=== PATIENT | female | born 1985 | race Caucasian/White ===

== ENCOUNTER 2017-06-15 18:50 | Outpatient (CLI) | payer BC ==
[~2017-06-15] VITALS: Ht 154.9 cm; Wt 84.8 kg
[~2017-06-15 18:50] MED LIST: IBUPROFEN800 MG PO; NORCO 5/3251 TABLET PO
[2017-06-15 19:13] VITALS: BP 123/69
[2017-06-15 19:36] VITALS: BP 126/81
[2017-06-15 20:13] LABS: APPEARANCE CLEAR ((CLEAR)); BILIRUBIN NEGATIVE; BLOOD NEGATIVE; COLOR STRAW ((YELLOW)); GLUCOSE (STRIP) 50; KETONES 5; LEUKOCYTES NEGATIVE; NITRITE NEGATIVE; PROTEIN (STRIP) NEGATIVE; SPECIFIC GRAVITY 1.004 (1.000-1.030); UROBILINOGEN 0.2 MG/DL (0.2-1.0)
[2017-06-15 20:39] LABS: AMPHETAMINE NEGATIVE (500 ng/mL); BARBITURATES NEGATIVE (200 ng/mL); BENZODIAZEPINES NEGATIVE (150 ng/mL); BUPRENORPHINE NEGATIVE (10 ng/mL); COCAINE NEGATIVE (150 ng/mL); METHADONE NEGATIVE (200 ng/mL); METHAMPHETAMINE NEGATIVE (500 ng/mL); OPIATES (MORPHINE) NEGATIVE (100 ng/mL); OXYCODONE NEGATIVE (100 ng/mL); PHENCYCLIDINE NEGATIVE (25 ng/mL); PROPOXYPHENE NEGATIVE (300 ng/mL); THC CANNABINOIDS NEGATIVE (50 ng/mL); TRICYCLIC ANTIDEPRESSANTS NEGATIVE (300 ng/mL)
[2017-06-15] MEDS ORDERED: ZANTAC150 MG PO (21:33)
[2017-06-15] MEDS ORDERED: ZOFRAN8 MG PO (21:33)
== END 2017-06-15 21:40 | disposition home or self-care (01) ==
LOC: LDRP-OP 18:50 → 2WEST 18:51 → LDRP-OP 09-06 08:09
PROVIDERS: Advanced Practice Midwife
DX: O26.893 Other specified pregnancy related conditions, third trimester (principal); R10.9 Unspecified abdominal pain; M41.9 Scoliosis, unspecified; M54.9 Dorsalgia, unspecified; R11.2 Nausea with vomiting, unspecified; O99.333 Smoking (tobacco) complicating pregnancy, third trimester; F17.200 Nicotine dependence, unspecified, uncomplicated; F32.9 Major depressive disorder, single episode, unspecified; O99.343 Other mental disorders complicating pregnancy, third trimester; F41.9 Anxiety disorder, unspecified; R45.850 Homicidal ideations; Z87.442 Personal history of urinary calculi; Z87.440 Personal history of urinary (tract) infections; Z79.891 Long term (current) use of opiate analgesic; Z88.0 Allergy status to penicillin; Z82.0 Family history of epilepsy and other diseases of the nervous system; Z82.49 Family history of ischemic heart disease and other diseases of the circulatory system; Z3A.32 32 weeks gestation of pregnancy
CPT/HCPCS: 59025; 81003; 87480; 87510; 87660; G0378

== ENCOUNTER 2017-07-14 16:13 | Outpatient (CLI) | payer BC ==
[~2017-07-14] VITALS: Ht 154.9 cm; Wt 85.9 kg
[~2017-07-14 16:13] MED LIST changes: +ZANTAC150 MG PO; +ZOFRAN8 MG PO
[2017-07-14 16:32] VITALS: BP 133/86
[2017-07-14 17:24] VITALS: BP 118/78
[2017-07-14] MEDS ORDERED: SOMA250 MG PO (17:38)
== END 2017-07-14 19:35 | disposition home or self-care (01) ==
LOC: LDRP-OP 16:13 → 2WEST 16:15 → LDRP-OP 09-06 21:51
DX: Z03.79 Encounter for other suspected maternal and fetal conditions ruled out (principal); O99.89 Other specified diseases and conditions complicating pregnancy, childbirth and the puerperium; M54.9 Dorsalgia, unspecified; M41.9 Scoliosis, unspecified; O99.353 Diseases of the nervous system complicating pregnancy, third trimester; G89.29 Other chronic pain; O99.213 Obesity complicating pregnancy, third trimester; E66.9 Obesity, unspecified; O24.419 Gestational diabetes mellitus in pregnancy, unspecified control; O99.343 Other mental disorders complicating pregnancy, third trimester; F31.9 Bipolar disorder, unspecified; Z3A.36 36 weeks gestation of pregnancy; Z79.891 Long term (current) use of opiate analgesic
CPT/HCPCS: 59025; G0378

== ENCOUNTER 2017-07-17 10:15 | Outpatient (CLI) | payer BC ==
[~2017-07-17 10:15] MED LIST changes: +SOMA250 MG PO
[2017-07-17 10:23] VITALS: BP 144/109
[2017-07-17] MEDS ORDERED: OXAYDO5 MG PO (10:37)
[2017-07-17 10:41] VITALS: BP 136/85
[2017-07-17 11:07] VITALS: BP 134/87
[2017-07-17 11:14] LABS: APPEARANCE CLEAR ((CLEAR)); BILIRUBIN NEGATIVE; BLOOD NEGATIVE; COLOR YELLOW ((YELLOW)); GLUCOSE (STRIP) NEGATIVE; KETONES NEGATIVE; LEUKOCYTES NEGATIVE; NITRITE NEGATIVE; PROTEIN (STRIP) NEGATIVE; SPECIFIC GRAVITY 1.009 (1.000-1.030); UCUL ADDED? NO; UROBILINOGEN 0.2 MG/DL (0.2-1.0)
[2017-07-17 11:36] LABS: BASOPHIL (%) 0.5 % (0-1); EOSINOPHIL (%) 1.3 % (0-5); EOSINOPHIL COUNT 0.1 K/uL (0-0.3); HEMOGLOBIN 12.1 G/DL (11.9-15.5); IMMATURE GRANULOCYTE (%) 0.3 % (0.0-0.7); LYMPHOCYTE (%) 24.4 % (15-42); LYMPHOCYTE COUNT 2.1 K/uL (1.0-2.8); MCH 26.6 PG (29.0-34.0); MCHC 32.7 G/DL (30.0-36.0); MCV 81.3 FL (83-99); MONOCYTE (%) 8.6 % (3-12); MONOCYTE COUNT 0.8 K/uL (0-0.8); NEUTROPHIL (%) 64.9 % (45-76); NEUTROPHIL COUNT 5.7 K/uL (1.8-6.4); PLATELET COUNT 296 K/uL (156-360); RBC DIS.WIDTH-SD 40.9 % (39-53); RED BLOOD COUNT 4.55 M/uL (3.80-5.20); WHITE BLOOD COUNT 8.8 K/uL (4.1-10.2)
[2017-07-17 11:40] LABS: UR CREATININE CONCENTRATION 61.5 MG/DL
[2017-07-17 12:06] VITALS: BP 141/96
[2017-07-17 12:06] LABS: ALBUMIN 2.9 G/DL (3.2-4.8); ALKALINE PHOSPHATASE 106 IU/L (3-129); ALT (GPT) 6 IU/L (3-49); AST (GOT) 9 IU/L (2-34); CHLORIDE 108 MEQ/L (99-109); CREATININE 0.5 MG/DL (0.6-1.3); GFR ESTIMATE (CALCULATED) > 59 mL/min/; GLUCOSE 100 mg/dL (70-99); POTASSIUM 3.9 MEQ/L (3.7-5.4); SODIUM 139 MEQ/L (136-147); TOTAL BILIRUBIN 0.2 MG/DL (0.0-1.0); TOTAL PROTEIN 5.8 G/DL (6.4-8.3); UREA NITROGEN (BUN) 6 mg/dL (9-23)
[2017-07-17 12:35] VITALS: BP 125/66
[2017-07-17 12:54] VITALS: BP 115/64
== END 2017-07-17 14:00 | disposition home or self-care (01) ==
LOC: LDRP-OP 10:15 → 2WEST 10:16 → LDRP-OP 09-06 20:36
PROVIDERS: Advanced Practice Midwife
DX: O26.893 Other specified pregnancy related conditions, third trimester (principal); N89.8 Other specified noninflammatory disorders of vagina; O99.213 Obesity complicating pregnancy, third trimester; E66.9 Obesity, unspecified; O99.323 Drug use complicating pregnancy, third trimester; F11.20 Opioid dependence, uncomplicated; O99.353 Diseases of the nervous system complicating pregnancy, third trimester; G89.29 Other chronic pain; O99.343 Other mental disorders complicating pregnancy, third trimester; F31.9 Bipolar disorder, unspecified; O99.333 Smoking (tobacco) complicating pregnancy, third trimester; F17.200 Nicotine dependence, unspecified, uncomplicated; O99.89 Other specified diseases and conditions complicating pregnancy, childbirth and the puerperium; M41.9 Scoliosis, unspecified; Z3A.37 37 weeks gestation of pregnancy; Z88.0 Allergy status to penicillin
CPT/HCPCS: 59025; 80053; 81003; 82570; 84156; 85025; 87077; 87086; 87186; 87480; 87510; 87660; G0378